=== PATIENT | male | born 1995 | race Caucasian/White ===

== ENCOUNTER 2020-11-21 10:45 | Emergency (ER) | payer OTHER, SELFPAY ==
[~2020-11-21] VITALS: Ht 172.7 cm; Wt 90.9 kg
[2020-11-21 10:45] VITALS: BP 138/72
--- NOTE | 2020-11-21 11:26 | REP ---
INDICATION: pain, swelling COMPARISON: None. TECHNIQUE: AP, lateral, bilateral oblique views right hand. FINDINGS: The osseous structures and joint spaces are intact and normal. There is no evidence for acute fracture or dislocation. Surrounding soft tissues are unremarkable. No subcutaneous emphysema or radiodense foreign body. IMPRESSION: . No acute fracture or dislocation. <Electronically signed by Suman Perla > 11/21/20 [id number]
[2020-11-21] MEDS ORDERED: NEOSPORIN OINT 0.9 GM PKT TOP ONE (11:45)
[2020-11-21] MEDS ORDERED: ACETAMINOPHEN 500 MG TAB PO ONE (11:55)
== END 2020-11-21 12:09 | disposition home or self-care (01) ==
LOC: M ED 10:45
DX: S09.90XA Unspecified injury of head, initial encounter (principal); S60.511A Abrasion of right hand, initial encounter; S60.111A Contusion of right thumb with damage to nail, initial encounter; Y04.8XXA Assault by other bodily force, initial encounter; Y92.238 Other place in hospital as the place of occurrence of the external cause; Y99.0 Civilian activity done for income or pay